=== PATIENT | male | born 1955 | race Caucasian/White ===

== ENCOUNTER 2017-01-17 12:31 | Emergency (ER) | payer BC ==
[~2017-01-17] VITALS: Ht 190.5 cm; Wt 109.1 kg
[~2017-01-17 12:31] MED LIST: ASPIRIN 81M81 MG/TA2 PO; DIOVAN/HCT 12.51 TA1 PO; NORCO 325 MG-7.1 TAB PO; NOVOLIN L100 U/ML SC; NOVOLOG 100U100 U/M1 SC
[2017-01-17 12:42] VITALS: TEMP 98
[2017-01-17] MEDS ORDERED: NOVOLOG 100U100 U/M1 SQ (14:02)
[2017-01-17] MEDS ORDERED: LEVEMIR FLEX100 U/ML SQ (14:03)
[2017-01-17 14:18] LABS: CALCIUM 10.2 mg/dL (8.4-10.2); CREATININE, serum 0.63 mg/dL (0.66-1.25); POTASSIUM 3.6 mmol/L (3.4-5.0)
[2017-01-17 14:25] LABS: PH 5 (5-8); SQUAMOUS EPITHELIAL None Seen /hpf; URINE APPEARANCE Clear; URINE BACTERIA None Seen /hpf; URINE BILIRUBIN Negative (NEGATIVE); URINE BLOOD Negative (NEGATIVE); URINE COLOR Yellow; URINE GLUCOSE Negative (NEGATIVE); URINE KETONE Negative (NEGATIVE); URINE RBC 0-2 /hpf; URINE UROBILINOGEN Negative (NEGATIVE); URINE WBC 0-2 /hpf
[2017-01-17 14:26] LABS: BASO % 0.3 % (0.0-2.0); EOS # 0.1 (0.0-0.7); EOS % 0.4 % (0-4.0); GRAN # 9.3 (1.4-6.5); GRAN % 79.4 % (42.2-75.2); LYMPH # 1.2 (1.2-3.4); MEAN CELL VOLUME 88 fl (80.0-100.0); MEAN CORPUSCULAR HEMOGLOBIN 31 pg (27.0-31.0); MEAN CORPUSCULAR HGB CONC 35 g/dl (33.0-37.0); MEAN PLATELET VOLUME 9.8 fl (7.4-10.4); MONO # 1.1 (0.1-0.6); MONO % 9.3 % (1.7-9.3); PLATELET COUNT 211 K/mm3 (130-400); RED BLOOD COUNT 5.21 M/mm3 (4.20-5.60); REDCELL DISTRIBUTION WIDTH-CV 12.9 % (11.5-14.5); WHITE BLOOD COUNT 11.7 K/mm3 (4.8-10.8)
[2017-01-17 15:36] VITALS: BP 135/80; PULSE 66
[2017-01-17] MEDS ORDERED: PERCOCET 325 MG1 TA2 PO (15:38)
== END 2017-01-17 15:48 | disposition home or self-care (01) ==
LOC: COL.ER 12:31
PROVIDERS: Physician Assistant
DX: S32.029A Unspecified fracture of second lumbar vertebra, initial encounter for closed fracture (principal); I10 Essential (primary) hypertension; E11.9 Type 2 diabetes mellitus without complications; Z79.4 Long term (current) use of insulin; Z79.82 Long term (current) use of aspirin; V80.010A Animal-rider injured by fall from or being thrown from horse in noncollision accident, initial encounter; Y93.I9 Activity, other involving external motion; F17.220 Nicotine dependence, chewing tobacco, uncomplicated
CPT/HCPCS: J1170; J2405; Q9967

== ENCOUNTER 2017-12-27 08:14 | Observation (INO) | payer BC ==
[~2017-12-27] VITALS: Ht 190.5 cm; Wt 98.7 kg
[~2017-12-27 08:14] MED LIST changes: +LEVEMIR FLEX100 U/ML SQ; +NOVOLOG 100U100 U/M1 SQ; +PERCOCET 325 MG1 TA2 PO
[2017-12-27] MEDS ORDERED: BYSTOLIC5 MG PO (08:27)
[2017-12-27] MEDS ORDERED: REVATIO20 MG PO (08:28)
[2017-12-27 08:34] LABS: BASO % 0.8 % (0.0-2.0); EOS # 0.3 (0.0-0.7); EOS % 5.3 % (0-4.0); GRAN # 3.1 (1.4-6.5); GRAN % 61.8 % (42.2-75.2); HEMATOCRIT 47.1 % (42.0-52.0); HEMOGLOBIN 15.9 g/dl (13.5-18.0); LYMPH # 1.1 (1.2-3.4); LYMPH % 20.8 % (20.0-51.0); MEAN CELL VOLUME 89 fl (80.0-100.0); MEAN CORPUSCULAR HEMOGLOBIN 30 pg (27.0-31.0); MEAN CORPUSCULAR HGB CONC 34 g/dl (33.0-37.0); MEAN PLATELET VOLUME 9.1 fl (7.4-10.4); MONO # 0.6 (0.1-0.6); MONO % 11.1 % (1.7-9.3); PLATELET COUNT 193 K/mm3 (130-400); RED BLOOD COUNT 5.31 M/mm3 (4.20-5.60); REDCELL DISTRIBUTION WIDTH-CV 13.5 % (11.5-14.5)
[2017-12-27] MEDS ORDERED: PROBIOTIC FORMU1 CAP PO (08:51)
[2017-12-27] MEDS ORDERED: OMEGA-3 1000 MG1 CAP PO (08:51)
[2017-12-27] MEDS ORDERED: COLACE 100100 MG/CAP PO (08:52)
[2017-12-27] MEDS ORDERED: ALEVE 220MG220 MG PO (08:53)
[2017-12-27 09:06] LABS: ALANINE AMINOTRANSFERASE 45 U/L (21-72); ALBUMIN 4.2 gm/dL (3.5-5.0); ALKALINE PHOSPHATASE 67 U/L (50-136); ANION GAP 13 mmol/L (7-16); AST,SGOT 35 U/L (15-37); BILIRUBIN,TOTAL 1.1 mg/dL (0.0-1.0); BLOOD UREA NITROGEN 21 mg/dL (9-20); CALCIUM 9.7 mg/dL (8.4-10.2); CARBON DIOXIDE 23 mmol/L (22-30); CHLORIDE 106 mmol/L (98-107); CREATININE, serum 0.59 mg/dL (0.66-1.25); GLUCOSE 60 mg/dL (74-106); LIPASE 119 U/L (23-300); MAGNESIUM 1.9 mg/dL (1.6-2.3); PHOSPHOROUS 2.8 mg/dL (2.5-4.5); POTASSIUM 3.8 mmol/L (3.4-5.0); SODIUM 141 mmol/L (137-145); TOTAL PROTEIN 7.5 gm/dL (6.4-8.2)
[2017-12-27 09:18] LABS: TROPONIN-I < 0.012 ng/mL (0.000-0.034)
[2017-12-27 10:02] LABS: COLLECTION METHOD CLEAN CATCH
[2017-12-27 10:08] LABS: MUCOUS Present /lpf; PH 5 (5-8); SQUAMOUS EPITHELIAL None Seen /hpf; URINE APPEARANCE Clear; URINE BACTERIA None Seen /hpf; URINE BILIRUBIN Negative (NEGATIVE); URINE BLOOD Negative (NEGATIVE); URINE COLOR Yellow; URINE GLUCOSE Negative (NEGATIVE); URINE KETONE Negative (NEGATIVE); URINE LEUKOCYTE ESTERASE Negative (NEGATIVE); URINE NITRATE Negative (NEGATIVE); URINE PROTEIN(semi-quant) Negative (NEGATIVE); URINE RBC 0-2 /hpf; URINE UROBILINOGEN Negative (NEGATIVE)
[2017-12-27] MEDS ORDERED: CBD OIL SL (12:19)
[2017-12-27 12:55] VITALS: BP 134/67; PULSE 49; TEMP 97.6
[2017-12-27 17:01] VITALS: BP 138/61; PULSE 46; TEMP 98
[2017-12-27 19:07] VITALS: BP 150/85; PULSE 85; TEMP 98.6
[2017-12-28 00:09] VITALS: BP 148/67; PULSE 50; TEMP 98.6
[2017-12-28 03:36] VITALS: BP 133/73; PULSE 78; TEMP 98.6
[2017-12-28 08:12] VITALS: BP 140/74; PULSE 49; TEMP 97.9
[2017-12-28 08:39] LABS: BASO % 0.8 % (0.0-2.0); EOS # 0.3 (0.0-0.7); EOS % 5.1 % (0-4.0); GRAN # 3.3 (1.4-6.5); GRAN % 65.4 % (42.2-75.2); HEMATOCRIT 45.8 % (42.0-52.0); HEMOGLOBIN 15.7 g/dl (13.5-18.0); LYMPH # 0.9 (1.2-3.4); LYMPH % 18.4 % (20.0-51.0); MEAN CELL VOLUME 89 fl (80.0-100.0); MEAN CORPUSCULAR HEMOGLOBIN 31 pg (27.0-31.0); MEAN CORPUSCULAR HGB CONC 34 g/dl (33.0-37.0); MEAN PLATELET VOLUME 9.2 fl (7.4-10.4); MONO # 0.5 (0.1-0.6); MONO % 9.7 % (1.7-9.3); PLATELET COUNT 181 K/mm3 (130-400); RED BLOOD COUNT 5.15 M/mm3 (4.20-5.60); REDCELL DISTRIBUTION WIDTH-CV 13.3 % (11.5-14.5)
[2017-12-28 08:47] LABS: CALCIUM 9.1 mg/dL (8.4-10.2); CHOLESTEROL RISK RATIO 5.8; CREATININE, serum 0.53 mg/dL (0.66-1.25); POTASSIUM 3.9 mmol/L (3.4-5.0)
[2017-12-28 09:58] VITALS: BP 140/74; PULSE 49
[2017-12-28 11:48] VITALS: BP 146/73; PULSE 50; TEMP 98.6
[2017-12-28] MEDS ORDERED: TYLENOL 325MG325 MG PO (14:37)
== END 2017-12-28 16:00 | disposition home or self-care (01) ==
LOC: COL.ER 08:14 → MEDICAL 11:24
PROVIDERS: Emergency Medicine; Physician Assistant
DX: R07.9 Chest pain, unspecified (principal); R00.2 Palpitations; R06.02 Shortness of breath; I11.9 Hypertensive heart disease without heart failure; E11.649 Type 2 diabetes mellitus with hypoglycemia without coma; Z79.4 Long term (current) use of insulin; Z82.49 Family history of ischemic heart disease and other diseases of the circulatory system; Z79.82 Long term (current) use of aspirin; Z79.899 Other long term (current) drug therapy; Z80.0 Family history of malignant neoplasm of digestive organs; F17.220 Nicotine dependence, chewing tobacco, uncomplicated
CPT/HCPCS: A9502; G0378; J1650; J7030; Q9967

== ENCOUNTER → 2018-06-13 | Outpatient (CLI) | payer BC ==
[~2018-06-13] MED LIST changes: +ALEVE 220MG220 MG PO; +BYSTOLIC5 MG PO; +CBD OIL SL; +COLACE 100100 MG/CAP PO; +OMEGA-3 1000 MG1 CAP PO; +PROBIOTIC FORMU1 CAP PO; +REVATIO20 MG PO; +TYLENOL 325MG325 MG PO
== END ==
LOC: COL.RAD 12:59
DX: M25.531 Pain in right wrist (principal)
CPT/HCPCS: J3301; Q9967

== ENCOUNTER → 2019-01-16 | Outpatient (CLI) | payer BC ==
[~2019-01-16] MED LIST changes: +MICARDIS HCT 251 TAB PO; +TESTOSTERONE
== END ==
LOC: COL.RAD 10:27
DX: M19.031 Primary osteoarthritis, right wrist (principal)
CPT/HCPCS: J3301; Q9967

== ENCOUNTER → 2019-11-22 | Outpatient (CLI) | payer BC | LOC: COL.RAD 09:34 | DX: M19.031 Primary osteoarthritis, right wrist (principal) | CPT/HCPCS: J3301; Q9967 ==